=== PATIENT | female | born 1945 | race Caucasian/White ===

== ENCOUNTER 2017-04-14 18:06 | Emergency (ER) | payer MEDICARE ==
[2017-04-14] MEDS ORDERED: METOPROLOL TARTRATE PF/INJ 5 MG/5 ML SDV IV ONE ×2 (18:48→20:00)
[2017-04-14] MEDS ORDERED: ASPIRIN 81 MG TABLET, CHEWABLE PO ONE (18:48)
[2017-04-14] MEDS ORDERED: APIXABAN 5 MG TABLET PO ONE (18:48)
[2017-04-14] MEDS ORDERED: NITROGLYCERIN 2% OINTMENT 1 GM PACKET TP ONE (18:51)
--- NOTE | 2017-04-14 18:51 | ER Document Report ---
ED Cardiac - General Chief Complaint: Chest Pain Stated Complaint: CHEST PAIN Time Seen by Provider: 04/14/17 18:47 Mode of Arrival: Ambulatory Information source: Patient Notes: 72 years old female with a history of A. fib, not taking any medications for A. fib all blood thinners, difficult historian, presents with mixed anterior chest pain radiating to both sides on and off. States a scale of 4/10. Denies any numbness tingling sensation nausea vomiting palpitation or diaphoresis. She had a cardiac bypass surgery details of which is not known. TRAVEL OUTSIDE OF THE [place] IN LAST 30 DAYS: No - Related Data Allergies/Adverse Reactions: No Known Allergies Allergy (Verified 04/14/17 18:06) Past Medical History - Social History Smoking Status: Former Smoker Family History: CAD, Hypertension - Past Medical History Cardiac Medical History: Denies: Hx Heart Attack, Hx Hypertension Pulmonary Medical History: Denies: Hx Asthma Neurological Medical History: Denies: Hx Cerebrovascular Accident, Hx Seizures GI Medical History: Denies: Hx Hepatitis, Hx Hiatal Hernia, Hx Ulcer Infectious Medical History: Denies: Hx Hepatitis Past Surgical History: Reports: Hx Hysterectomy. Denies: Hx Mastectomy, Hx Open Heart Surgery, Hx Pacemaker Review of Systems - Review of Systems Notes: complete female review REVIEW OF SYSTEMS: CONSTITUTIONAL : Denies fever, chills, or sweats. Denies recent illness. EENT: Denies eye, ear, throat, or mouth pain or symptoms. Denies nasal or sinus congestion or discharge. Denies throat, tongue, or mouth swelling or difficulty swallowing. CARDIOVASCULAR: As per review of complain RESPIRATORY: Denies cough, cold, or chest congestion. Denies shortness of breath, difficulty breathing, or wheezing. GASTROINTESTINAL: Denies abdominal pain or distention. Denies nausea, vomiting , or diarrhea. Denies blood in vomitus, stools, or per rectum. Denies black, tarry stools. Denies constipation. GENITOURINARY: Denies difficulty urinating, painful urination, burning, frequency, blood in urine, or discharge. FEMALE GENITOURINARY: Denies vaginal bleeding, heavy or abnormal periods, irregular periods. Denies vaginal discharge or odor. MUSCULOSKELETAL: Denies back or neck pain or stiffness. Denies joint pain or swelling. SKIN: Denies rash, lesions or sores. HEMATOLOGIC : Denies easy bruising or bleeding. LYMPHATIC: Denies swollen, enlarged glands. NEUROLOGICAL: Denies confusion or altered mental status. Denies passing out or loss of consciousness. Denies dizziness or lightheadedness. Denies headache. Denies weakness or paralysis or loss of use of either side. Denies problems with gait or speech. Denies sensory loss, numbness, or tingling. Denies seizures. PSYCHIATRIC: Denies anxiety or stress. Denies depression, suicidal ideation, or homicidal ideation. ALL OTHER SYSTEMS REVIEWED AND NEGATIVE. PHYSICAL EXAMINATION: GENERAL: Well-appearing, well-nourished and in no acute distress. Not seems to be in any acute distress. HEAD: Atraumatic, normocephalic. EYES: Pupils equal round and reactive to light, extraocular movements intact, conjunctiva are normal. ENT: Nares patent, oropharynx clear without exudates. Moist mucous membranes. NECK: Normal range of motion, supple without lymphadenopathy LUNGS: Breath sounds clear to auscultation bilaterally and equal. No wheezes rales or rhonchi. HEART: Regular rate and rhythm without murmurs ABDOMEN: Soft, nontender, nondistended abdomen. No guarding, no rebound. No masses appreciated. Female : deferred Musculoskeletal: Normal range of motion, no pitting or edema. No cyanosis. No pitting edema or cellulitis noted NEUROLOGICAL: Cranial nerves grossly intact. Normal speech, normal gait. Normal sensory, motor exams PSYCH: Normal mood, normal affect. SKIN: Warm, Dry, normal turgor, no rashes or lesions noted. Dictation was performed using [employer] voice recognition software Physical Exam - Vital signs Vitals: Temp Pulse Resp BP Pulse Ox 98.5 F 153 H 22 H 185/105 H 100 04/14/17 18:11 04/14/17 18:11 04/14/17 18:11 04/14/17 18:11 04/14/17 18:11 Course - Re-evaluation Re-evalutation: 04/14/17 21:51 Patient's heart rate was controlled, given IV fluid, started on Eliquis. Patient insisted on leaving AMA. - Vital Signs Vital signs: Temp Pulse Resp BP Pulse Ox 98.5 F 153 H 23 H 129/92 H 97 04/14/17 18:11 04/14/17 18:11 04/14/17 20:31 04/14/17 20:31 04/14/17 20:31 - Laboratory Result Diagrams: 04/14/17 18:40 04/14/17 18:40 Laboratory results interpreted by me: 04/14/17 04/14/17 18:40 18:40 RDW 14.5 H Total Protein 6.2 L - Diagnostic Test Radiology reviewed: Reports reviewed - Chest x-ray reported by radiologist reviewed, normal. No infiltration effusion or pneumothorax. - EKG Interpretation by Me Rhythm: A.Fib - At the rate of 145 beats minute normal axis no acute ST elevation ST depression T-wave inversion inversion noted. Diagnoses atrial fibrillation at the rate of 141 bpm Discharge - Discharge Clinical Impression: Chest pain, rule out acute myocardial infarction Atrial fibrillation Qualifiers: Atrial fibrillation type: paroxysmal Qualified Code(s): I48.0 - Paroxysmal atrial fibrillation Disposition: AGAINST MEDICAL ADVICE Instructions: Chest Pain of Unclear Cause ([facility]), Angina Episode ([facility]) Additional Instructions: Patient was clearly told the risk of leaving, she could have another heart attack and , or the heart rate might go uncontrollably, she could end up in a stroke. Prescriptions: Apixaban [Eliquis 5 mg Tablet] 5 mg PO BID #60 tablet
[2017-04-14 19:16] LABS: ABSOLUTE EOSINOPHILS # (AUTO) 0.1 10^3/uL (0.0-0.6); ABSOLUTE LYMPHOCYTES (AUTO) 3.5 10^3/uL (0.5-4.7); ABSOLUTE MONOCYTES (AUTO) 1.1 10^3/uL (0.1-1.4); ABSOLUTE NEUT (AUTO) 5.7 10^3/uL (1.7-8.2); BASOPHILS % (AUTO) 0.3 % (0-2); EOSINOPHILS % (AUTO) 0.8 % (0-6); HEMATOCRIT 36.1 % (36.0-47.0); HEMOGLOBIN 12.3 g/dL (12.0-15.5); HGB HCT DIFFERENCE 0.8; LYMPHOCYTES % (AUTO) 33.8 % (13-45); MEAN CORPUSCULAR HEMOGLOBIN 29.1 pg (27.0-33.4); MEAN CORPUSCULAR VOLUME 86 fl (80-97); MONOCYTES % (AUTO) 10.2 % (3-13); RED BLOOD COUNT 4.22 10^6/uL (3.72-5.28); RED CELL DISTRIBUTION WIDTH 14.5 % (11.5-14.0); SEGMENTED NEUTROPHILS % (AUTO) 54.9 % (42-78); WHITE BLOOD COUNT 10.4 10^3/uL (4.0-10.5)
[2017-04-14] MEDS ORDERED: NORMAL SALINE 1000 ML 1,000 ML IV ONE (19:18)
[2017-04-14 19:38] LABS: ALANINE AMINOTRANSFERASE 24 U/L (9-52); ALBUMIN 4.1 g/dL (3.5-5.0); ALKALINE PHOSPHATASE 85 U/L (38-126); ANION GAP 10 (5-19); ASPARTATE AMINO TRANSFERASE 19 U/L (14-36); BILIRUBIN,DIRECT 0.2 mg/dL (0.0-0.4); BILIRUBIN,TOTAL 0.2 mg/dL (0.2-1.3); BLOOD UREA NITROGEN 15 mg/dL (7-20); CARBON DIOXIDE 27 mmol/L (22-30); CHLORIDE 100 mmol/L (98-107); CREATINE KINASE 34 U/L (30-135); CREATININE RESULT 0.64 mg/dL (0.52-1.25); GLUCOSE 93 mg/dL (75-110); POTASSIUM 4.1 mmol/L (3.6-5.0); SODIUM 137.4 mmol/L (137-145); TOTAL PROTEIN 6.2 g/dL (6.3-8.2)
--- NOTE | 2017-04-14 19:43 | RADIOLOGY REPORT (SQ) ---
EXAM DESCRIPTION: CHEST SINGLE VIEW COMPLETED DATE/TIME: 04/14/2017 7:31 pm REASON FOR STUDY: Chest pain COMPARISON: 09/27/2010 EXAM PARAMETERS: NUMBER OF VIEWS: One view. TECHNIQUE: Single frontal radiographic view of the chest acquired. RADIATION DOSE: NA LIMITATIONS: None. FINDINGS: LUNGS AND PLEURA: No opacities, masses or pneumothorax. No pleural effusion. MEDIASTINUM AND HILAR STRUCTURES: No masses. Contour normal. HEART AND VASCULAR STRUCTURES: Stable heart size. BONES: No acute findings. HARDWARE: CABG. OTHER: No other significant finding. IMPRESSION: NO ACUTE RADIOGRAPHIC FINDING IN THE CHEST. TECHNICAL DOCUMENTATION: JOB ID: [id number] [employer]- All Rights Reserved
[2017-04-14 19:51] LABS: TROPONIN I < 0.012 ng/mL
[2017-04-14 21:08] VITALS: BP 129/92
--- NOTE | 2017-04-15 08:43 | EKG REPORT ---
SEVERITY:- ABNORMAL ECG - ATRIAL FIBRILLATION REPOLARIZATION ABNORMALITY, PROB RATE RELATED BORDERLINE PROLONGED QT INTERVAL : Confirmed by: Huber Yung MD 15-Apr-2017 08:42:49
== END 2017-04-14 22:08 | disposition left against medical advice (07) ==
LOC: ER 18:06
DX: I48.0 Paroxysmal atrial fibrillation (principal); R07.9 Chest pain, unspecified; Z87.891 Personal history of nicotine dependence
CPT/HCPCS: 93005; 99285; 96361; 96374; 36415; 82553; 82550; 85025; 80053; 84484; 71010; 93010; A9270 ×2; J3490; J7030

== ENCOUNTER 2018-06-09 06:18 | Emergency (ER) | payer MEDICARE ==
[2018-06-09] MEDS ORDERED: KETOROLAC TROMETHAMINE 60 MG/2 ML SDV IM ONE (06:51)
[2018-06-09] MEDS ORDERED: LIDOCAINE 5% (700 MG) TRANSDERMAL ADH..PATCH TP ONE (06:51)
[2018-06-09] MEDS ORDERED: DIAZEPAM 2 MG TABLET PO ONE (06:51)
--- NOTE | 2018-06-09 08:42 | RADIOLOGY REPORT (SQ) ---
EXAM DESCRIPTION: CT CERVICAL SPINE WITHOUT COMPLETED DATE/TIME: 06/09/2018 8:05 am REASON FOR STUDY: pain after watching tv in bed, can't move neck COMPARISON: None. TECHNIQUE: Axial images acquired through the cervical spine without intravenous contrast. Images re viewed with lung, soft tissue and bone windows. Reconstructed coronal and sagittal MPR images review ed. Images stored on PACS. All CT scanners at this facility use dose modulation, iterative reconstruction, and/or weight based d osing when appropriate to reduce radiation dose to as low as reasonably achievable (ALARA). [facility]: Dose Right [facility]: CareDose [facility]: Dose Right [facility]: Teradose 4D [facility]: [employer] RADIATION DOSE: CT Rad equipment meets quality standard of care and radiation dose reduction techniq ues were employed. CTDIvol: 17.6 mGy. DLP: 389 mGy-cm. mGy. LIMITATIONS: None. FINDINGS: ALIGNMENT: Anatomic. MINERALIZATION: Normal. VERTEBRAL BODIES: No fractures or dislocation. DISCS: Mild disc space loss height at C5 through 6. No significant central or foraminal encroachment FACETS, LATERAL MASSES, POSTERIOR ELEMENTS: No fractures. No dislocation. No acute findings. Benig n calcification/ossification along the interspinous ligament at C6-7 HARDWARE: None in the spine. VISUALIZED RIBS: No fractures. LUNG APICES AND SOFT TISSUES: No significant or acute findings. OTHER: No other significant finding. IMPRESSION: Mild degenerative disc changes at C5-6. Otherwise unremarkable study. TECHNICAL DOCUMENTATION: JOB ID: [id number] Quality ID # [id number]: Final reports with documentation of one or more dose reduction techniques (e.g., Au tomated exposure control, adjustment of the mA and/or kV according to patient size, use of iterative reconstruction technique) 2010 [employer]- All Rights Reserved Reading location - IP/workstation name: [facility]
[2018-06-09 08:59] VITALS: BP 143/73
--- NOTE | 2018-06-09 09:20 | ER Document Report ---
ED General - General Chief Complaint: Stiff Neck Stated Complaint: NECK PAIN Time Seen by Provider: 06/09/18 06:36 Primary Care Provider: BARBARA RENAE MD [Primary Care Provider] - Follow up as needed TRAVEL OUTSIDE OF THE [place] IN LAST 30 DAYS: No - HPI Patient complains to provider of: Neck pain Notes: Patient coming in for evaluation of neck pain. Patient states was in the bed last night Falling her screening Down's getting herself up in bed states she did this maneuver one time had pain in her neck patient states she is unable to move her head at this time. Patient denies any trauma denies any fever chills nausea vomiting diarrhea. Patient states that she is been unable to quite time - Related Data Allergies/Adverse Reactions: No Known Allergies Allergy (Verified 04/14/17 18:06) Past Medical History - Social History Smoking Status: Unknown if Ever Smoked Family History: CAD, Hypertension Patient has suicidal ideation: No Patient has homicidal ideation: No - Past Medical History Cardiac Medical History: Reports: Hx Atrial Fibrillation Denies: Hx Heart Attack, Hx Hypertension Pulmonary Medical History: Denies: Hx Asthma Neurological Medical History: Denies: Hx Cerebrovascular Accident, Hx Seizures Renal/ Medical History: Denies: Hx Peritoneal Dialysis GI Medical History: Denies: Hx Hepatitis, Hx Hiatal Hernia, Hx Ulcer Infectious Medical History: Denies: Hx Hepatitis Past Surgical History: Reports: Hx Hysterectomy. Denies: Hx Mastectomy, Hx Open Heart Surgery, Hx Pacemaker Review of Systems - Review of Systems Constitutional: No symptoms reported EENT: Other - Neck pain Cardiovascular: No symptoms reported Respiratory: No symptoms reported Gastrointestinal: No symptoms reported Genitourinary: No symptoms reported Female Genitourinary: No symptoms reported Musculoskeletal: No symptoms reported Skin: No symptoms reported Hematologic/Lymphatic: No symptoms reported Neurological/Psychological: No symptoms reported -: Yes All other systems reviewed and negative Physical Exam - Vital signs Vitals: Temp Pulse Resp BP Pulse Ox 98.2 F 90 21 H 138/91 H 97 06/09/18 06:18 06/09/18 06:18 06/09/18 06:18 06/09/18 06:18 06/09/18 06:18 Interpretation: Normal - General General appearance: Appears well, Alert - HEENT Head: Normocephalic, Atraumatic Eyes: Normal Pupils: PERRL Ears: Normal Tympanic membrane: Normal Sinus: Normal Nasal: Normal Mouth/Lips: Normal Pharynx: Normal Notes: Patient with diffuse paraspinal tenderness tenderness bilateral of the anion the occiput - Respiratory Respiratory status: No respiratory distress Chest status: Nontender Breath sounds: Normal Chest palpation: Normal - Cardiovascular Rhythm: Regular Heart sounds: Normal auscultation Murmur: No - Abdominal Inspection: Normal Distension: No distension Bowel sounds: Normal Tenderness: Nontender Organomegaly: No organomegaly - Back Back: Normal, Nontender - Extremities General upper extremity: Normal inspection, Nontender, Normal color, Normal ROM, Normal temperature General lower extremity: Normal inspection, Nontender, Normal color, Normal ROM, Normal temperature, Normal weight bearing. No: Morales's sign - Neurological Neuro grossly intact: Yes Cognition: Normal Orientation: AAOx4 Abel Coma Scale Eye Opening: Spontaneous Abel Coma Scale Verbal: Oriented Gates Coma Scale Motor: Obeys Commands Gates Coma Scale Total: 15 Speech: Normal Motor strength normal: LUE, RUE, LLE, RLE Sensory: Normal - Psychological Associated symptoms: Normal affect, Normal mood - Skin Skin Temperature: Warm Skin Moisture: Dry Skin Color: Normal Course - Re-evaluation Re-evalutation: 06/09/18 15:59 Patient coming in for evaluation of neck pain. Patient was given ketorolac Valium underwent CT scan not show any acute fracture showed diffuse arthritic disease. Patient feeling better after medications given will be discharged home follow-up primary care physician. - Vital Signs Vital signs: Temp Pulse Resp BP Pulse Ox 98.2 F 81 17 143/73 H 98 06/09/18 08:58 06/09/18 08:58 06/09/18 08:58 06/09/18 08:58 06/09/18 08:58 Discharge - Discharge Clinical Impression: Diffuse arthritis in the neck Cervical strain Qualifiers: Encounter type: initial encounter Qualified Code(s): S16.1XXA - Strain of muscle, fascia and tendon at neck level, initial encounter Instructions: Neck Injury (Cervical Strain) ([facility]) Additional Instructions: Your evaluation today shows diffuse arthritis throughout her neck your examination is consistent with a muscle strain of your neck I would recommend taking Tylenol for pain he may use [id number] lidocaine patches he may take the Valium as needed for severe pain return to ER symptoms worsen. Prescriptions: Diazepam [Valium 2 mg Tablet] 2 mg PO Q6HP PRN #10 tablet PRN Reason: Referrals: BARBARA RENAE MD [Primary Care Provider] - Follow up as needed
== END 2018-06-09 12:15 | disposition home or self-care (01) ==
LOC: ER 06:18
DX: S16.1XXA Strain of muscle, fascia and tendon at neck level, initial encounter (principal); M47.9 Spondylosis, unspecified; M43.6 Torticollis; M54.2 Cervicalgia; W19.XXXA Unspecified fall, initial encounter; I48.91 Unspecified atrial fibrillation
CPT/HCPCS: 99284; 72125; A9270; J1885; J3490